=== PATIENT | male | born 1970 | race Caucasian/White ===

== ENCOUNTER 2022-08-20 10:52 | Emergency (ER) | payer SELFPAY ==
[2022-08-20] MEDS ORDERED: Naloxone 0.4 MG/ML SDV ONE (11:04)
[2022-08-20] MEDS ORDERED: Naloxone 2 MG/2 ML Syringe ONE (11:04)
[2022-08-20] MEDS ORDERED: Sodium Chloride 0.9% 1,000 ML IV STA (11:16)
[2022-08-20] MEDS ORDERED: Ondansetron 4 MG/2 ML SDV IVPUSH ONE (11:16)
[2022-08-20] MEDS ORDERED: Sodium Chloride 0.9% 10 ML Syringe FLUSH PRN (11:16)
[2022-08-20] MEDS: Diphtheria,Pertussis(Acell),Tetanus Vaccine 0.5 ML Syringe IM ONE ×2 (11:52→11:56)
[2022-08-20 12:04] LABS: ESTIMATED GFR 81 mL/min (>60)
== END 2022-08-20 13:47 ==
LOC: JD.ED 10:52
DX: F14.10 Cocaine abuse, uncomplicated (principal); R00.1 Bradycardia, unspecified; Z72.0 Tobacco use
CPT/HCPCS: 36415; 80053; 80143; 80179; 80306; 80307; 83735; 84443; 85025; 86140; 93005; 96361; 96374; 99283; J2405; J3490; J7030; 90715